=== PATIENT | female | born 1940 | race Caucasian/White ===

== ENCOUNTER → 2023-11-24 12:44 | Outpatient (REF) | payer OTHER, SELFPAY | LOC: WDC 12:44 | PROVIDERS: ATTENDING PHYSICIAN Internal Medicine | DX: Z12.31 Encounter for screening mammogram for malignant neoplasm of breast (principal) | CPT/HCPCS: 77063; 77067 ==

== ENCOUNTER 2024-09-07 14:55 | Emergency (ER) | payer OTHER, SELFPAY ==
[2024-09-07 14:56] VITALS: BP 184/90
--- NOTE | 2024-09-07 16:47 | ED.GENMED ---
History of Present Illness
General
Chief Complaint: Head Injury
Source: patient
Exam Limitations: none
Time Seen by Provider: 09/07/24 16:25
Nursing documentation reviewed up to this point in time: agreed with
History of Present Illness
History of Present Illness:
Patient presents to ED for evaluation of head injury, which occurred prior to arrival. Patient states that she got on the stool to grab something out of the cabinet. She had not realized that cabinet door was open. So when she climbed up, she hit
the top of her head against a open cabinet door, causing small cut with bleeding. Patient did not lose consciousness. Did not fall off the stool. Denies any other injuries. Denies loss of sensation or weakness. Denies headache. Denies neck
pain. Denies blurred vision. Denies dizziness. Denies nausea or vomiting. Patient does not take any blood thinning medications.
Review of Systems
Review of Systems
Allergies reviewed?: Yes
All Other Systems: ROS reviewed and negative except as documented in HPI and ROS
Constitutional: Reports no symptoms
Respiratory: Reports no symptoms
Cardiac: Reports no symptoms; Denies syncope
ABD/GI: Denies nausea or vomiting
Musculoskeletal: Reports no symptoms
Skin: Reports other (Scalp laceration)
Neurological: Reports no symptoms; Denies dizzy, headache, weakness or numbness
Phy Exam
Physical Exam
Physical Exam:
Physical Exam
General: no apparent distress, not acutely ill. afebrile
Head: an approx 0.5 cm, c-shaped superficial laceration on top of scalp without active bleeding
Neck: supple. normal range of motion.
Neuro: alert and oriented x 3. no focal neurological deficits
Skin: no rash
Psychiatric: well kept. interactive and cooperative
Extremities: no edema. no calf tenderness.
Course
Vital Signs
Initial and Last Documented VS:
Initial Vital Signs
Temp Pulse Resp BP Pulse Ox
97.7 F 76 19 184/90 99
09/07/24 14:56 09/07/24 14:56 09/07/24 14:56 09/07/24 14:56 09/07/24 14:56
Last Documented Vital Signs
Temp Pulse Resp BP Pulse Ox
97.7 F 76 19 184/90 99
09/07/24 14:56 09/07/24 14:56 09/07/24 14:56 09/07/24 14:56 09/07/24 14:56
Procedures
Laceration Closure
Scalp:
Size of Wound in cm: 0.5
Description of Wound Edges: sharp
Preparation: cleaned with SurClens
Revision/Debridement: routine- no revision
Type of Closure: single layer closure
Skin Closure Material: skin yana (2 yana)
MDM/Problems Addressed
MDM/Problems Addressed:
Wound well-approximated with placement of 2 yana. No indication for any imaging studies at this time. Return precautions provided. Patient discharged home in stable condition, to the care of her neighbor, with recommendation to follow-up with
PCP for reevaluation, or return to ED with worsening symptoms. Patient agrees with treatment plan.
*Critical Care Note
Total Time (30-74mins, 75-104mins- exclusive of procedures): Not Applicable
ED Attending Note
-
Portions of this chart may have been created with voice recognition software.� Occasional wrong word or��sound alike� substitutions may have occurred due to the inherent limitations of voice recognition software.
Discharge Plan
Departure
Patient Disposition: Home (Routine Discharge)
Date of Disposition: 09/07/24
Time of Disposition: 16:49
Patient with high blood pressure during this ER visit?: Yes
Discharge Problem:
Laceration of scalp
Instructions: Laceration Repair With Yana (DC), Minor Head Injury (DC)
Activity Restrictions/Additional Instructions:
As discussed, please follow-up with your primary care physician for reevaluation, including staple removal in 7 to 10 days.
Interventions
Interventions:
*Risk Screen - Suicide Last Done: 09/07/24 16:35
*General Assessment Last Done: 09/07/24 15:00
*Neglect/Abuse Screening Last Done: 09/07/24 16:35
*Nursing Disposition Last Done: 09/07/24 17:24
ED- Neurological Assessment Last Done: 09/07/24 16:30
ED-Skin Assessment Last Done: 09/07/24 16:30
Discharge Date and Time
Discharge Date/Time: 09/07/24 17:25
Print Language: IRANIAN
== END 2024-09-07 17:25 | disposition home or self-care (01) ==
LOC: EMR 14:55
PROVIDERS: EMERGENCY PHYSICIAN Emergency Medicine; FAMILY PHYSICIAN Internal Medicine
DX: S01.01XA Laceration without foreign body of scalp, initial encounter (principal); W22.03XA Walked into furniture, initial encounter
CPT/HCPCS: 99282; 12001

== ENCOUNTER → 2024-11-29 12:42 | Outpatient (REF) | payer OTHER, SELFPAY | LOC: WDC 12:42 | PROVIDERS: ATTENDING PHYSICIAN Internal Medicine | DX: Z12.31 Encounter for screening mammogram for malignant neoplasm of breast (principal) | CPT/HCPCS: 77063; 77067 ==

== ENCOUNTER → 2025-01-16 12:53 | Outpatient (REF) | payer OTHER, SELFPAY | LOC: RAD 12:53 | PROVIDERS: ATTENDING PHYSICIAN Internal Medicine | DX: Z12.31 Encounter for screening mammogram for malignant neoplasm of breast (principal); M81.0 Age-related osteoporosis without current pathological fracture | CPT/HCPCS: 77080 ==